=== PATIENT | female | born 1975 | race Two or more races ===

== ENCOUNTER 2024-11-12 15:19 | Emergency (ER) | payer OTHER ==
[~2024-11-12] VITALS: Ht 170.2 cm; Wt 83.9 kg
[~2024-11-12 15:19] MED LIST: LEVAQUIN750 MG PO
[2024-11-12] MEDS ORDERED: ORPHENADRINE CITRATE 30 MG/ML AMPUL IM STA (16:51)
[2024-11-12] MEDS ORDERED: KETOROLAC TROMETHAMINE 15 MG VIAL IM STA (16:51)
[2024-11-12] MEDS ORDERED: ORPHENADRINE CITRATE 30 MG/ML AMPUL ONE (18:00)
[2024-11-12] MEDS ORDERED: KETOROLAC TROMETHAMINE 60 MG VIAL IM ONE (18:01)
[2024-11-12] MEDS ORDERED: NORFLEX100MG PO (21:46)
[2024-11-12 21:53] VITALS: BP 110/61; O2SAT 100
== END 2024-11-12 21:55 | disposition home or self-care (01) ==
LOC: ER 15:19
DX: S80.02XA Contusion of left knee, initial encounter (principal); S80.01XA Contusion of right knee, initial encounter; S40.011A Contusion of right shoulder, initial encounter; W19.XXXA Unspecified fall, initial encounter; Y93.89 Activity, other specified; Y92.89 Other specified places as the place of occurrence of the external cause; Y99.9 Unspecified external cause status